=== PATIENT | male | born 1990 | race Caucasian/White ===

== ENCOUNTER 2020-02-10 00:34 | Observation (INO) | payer OTHER ==
[2020-02-10] VITALS (7 sets, daily range): BP systolic 122–145; BP diastolic 73–89; Ht 190.5 cm; Wt 143.3 kg
[~2020-02-10] VITALS: Ht 190.5 cm; Wt 143.3 kg
[2020-02-10] MEDS ORDERED: NORVASC10 MG PO (00:39)
[2020-02-10] MEDS ORDERED: COZAAR100 MG PO (00:39)
[2020-02-10] MEDS ORDERED: HCTZ25 MG PO (00:39)
[2020-02-10] MEDS ORDERED: ZETIA10 MG PO (00:39)
[2020-02-10] MEDS ORDERED: FENOFIBRATE160 MG PO (00:40)
[2020-02-10] MEDS ORDERED: [UNRECOGNIZED DRUG - OTHER] (00:40)
[2020-02-10] MEDS ORDERED: METOPROLOL TART25 MG PO (00:40)
[2020-02-10] MEDS ORDERED: LIPITOR20 MG PO (00:40)
[2020-02-10 01:16] LABS: BASOPHILS 0.1 % (0-2); EOSINOPHILS 1.3 % (0-7); HEMATOCRIT 44.3 % (42.0-54.0); HEMOGLOBIN 14.2 g/dL (13.5-17.5); IMMATURE GRANULOCYTES 0.2 % (0-5); LYMPHOCYTES 32.8 % (15-50); MCH 27.7 pg (26.0-34.0); MCHC 32.1 g/dL (31.0-37.0); MCV 86.5 fL (80.0-100.0); MEAN PLATELET VOLUME 9.1 fL (7.4-10.4); MONOCYTES 6.6 % (2-11); PLATELET COUNT 261 10x3/uL (130-400); RBC 5.12 10x6/uL (4.20-6.10); RDW 13.2 % (11.5-14.5); WBC 9.6 10x3/uL (4.8-10.8)
[2020-02-10 01:27] LABS: CALC OSMOLALITY 278 mosm/kg (275-300); CALCIUM 8.5 mg/dL (8.5-10.1); CARBON DIOXIDE 26.8 mmol/L (21.0-32.0); CHLORIDE - SERUM 103 mmol/L (98-107); GLUCOSE 97 mg/dL (74-106); INR 1.05 (0.85-1.17); POTASSIUM - SERUM 3.7 mmol/L (3.5-5.1); PROTIME 13.6 SECONDS (11.6-15.0); SODIUM 139 mmol/L (136-145); UREA NITROGEN 14 mg/dL (7-18); eGFR NON AFRICAN AMERICAN > 90 mL/min (90-120)
[2020-02-10 01:28] LABS: APTT 38.3 SECONDS (22.8-39.4)
[2020-02-10 01:43] LABS: ALBUMIN 3.7 g/dL (3.4-5.0); ALKALINE PHOSPHATASE 54 U/L (30-120); ALT (SGPT) 52 U/L (10-68); CKMB 0.3 U/L (0.0-3.6); CREATINE KINASE 109 UL (21-232); PROTEIN - SERUM 7.5 g/dL (6.4-8.2); TROPONIN-I < 0.017 ng/mL (0.000-0.060)
--- NOTE | 2020-02-10 02:51 | NUR ---
RECEIVED VIA WHEELCHAIR FROM ER, A&O X4, NEDS AND HISTORY COMPLETE, PLACED ON TELEMTRY, WILL KEEP NPO, BED IS LOW, SRX2, CALL LIGHT IN REACH, WILL CONTINUE PLAN OF CARE
--- NOTE | 2020-02-10 05:53 | NUR ---
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
[2020-02-10 06:19] LABS: CREATINE KINASE 104 UL (21-232)
[2020-02-10 06:22] LABS: TROPONIN-I < 0.017 ng/mL (0.000-0.060)
--- NOTE | 2020-02-10 19:15 | NUR ---
RECEIVED REPORT, WILL ASSUME CARE OF PT, ASKING FOR COFFEE, PROVIDED, DENIES ANY OTHER NEEDS AT THIS TIME, BED IS LOW, SRX2, CALL LIGHT IN REACH, WILL CONTINUE PLAN OF CARE
--- NOTE | 2020-02-10 21:09 | NUR ---
WENT TO GIVE PM MEDS, PT HAD ALREADY TOOK HIS OWN
[2020-02-11 01:12] VITALS: BP 115/67
--- NOTE | 2020-02-11 03:59 | NUR ---
I have reviewed this patient and I concur with the Shift Assessment completed by the Licensed Practical Nurse today this shift.
[2020-02-11 04:05] VITALS: BP 115/74
[2020-02-11 05:51] LABS: BASOPHILS 0.2 % (0-2); EOSINOPHILS 1.5 % (0-7); HEMATOCRIT 46.7 % (42.0-54.0); HEMOGLOBIN 15.2 g/dL (13.5-17.5); IMMATURE GRANULOCYTES 0.2 % (0-5); LYMPHOCYTES 33.9 % (15-50); MCH 27.9 pg (26.0-34.0); MCHC 32.5 g/dL (31.0-37.0); MCV 85.8 fL (80.0-100.0); MEAN PLATELET VOLUME 9.2 fL (7.4-10.4); MONOCYTES 9.4 % (2-11); NEUTROPHILS 54.8 % (40-80); RBC 5.44 10x6/uL (4.20-6.10); RDW 13.3 % (11.5-14.5); WBC 10.3 10x3/uL (4.8-10.8)
[2020-02-11 05:55] LABS: PLATELET COUNT 316 10x3/uL (130-400)
[2020-02-11 06:28] LABS: ALBUMIN 3.8 g/dL (3.4-5.0); ALKALINE PHOSPHATASE 65 U/L (30-120); ALT (SGPT) 49 U/L (10-68); BILIRUBIN - TOTAL 0.62 mg/dL (0.2-1.3); CALC OSMOLALITY 274 mosm/kg (275-300); CALCIUM 8.9 mg/dL (8.5-10.1); CHLORIDE - SERUM 100 mmol/L (98-107); CREATININE - SERUM 1.1 mg/dL (0.6-1.3); GLUCOSE 103 mg/dL (74-106); PROTEIN - SERUM 7.4 g/dL (6.4-8.2); SODIUM 137 mmol/L (136-145); UREA NITROGEN 14 mg/dL (7-18); eGFR NON AFRICAN AMERICAN 83 mL/min (90-120)
[2020-02-11 07:53] VITALS: BP 131/72
[2020-02-11] MEDS ORDERED: ASPIRIN81 MG PO (09:09)
--- NOTE | 2020-02-11 10:53 | NUR ---
IV AND TELEMETRY DCD. DC PLANS GIVEN. UNDERSTANDING VOICED. ESCORTED TO CAR BY W/C.
--- NOTE | 2020-02-13 07:30 | MORECARE ---
CASE MANAGEMENT DISCHARGE SUMMARY PATIENT: PAULA XAVIER UNIT: [id number] ADM DATE: 02/10/20 AGE: 29 : 88 SEX: M ROOM/BED: D.2119 AUTHOR: DONTA TILLMAN PHYSICIAN: REFERRING PHYSICIAN: SHERIF HORVATH MD DATE OF SERVICE: 02/13/20 Discharge Plan Patient Name: PAULA XAVIER [facility] : 1990 Planned Disposition: Anticipated Discharge Date: Discharge Date: 02/11/2020 Expected LOS: 0 Initial Reviewer: [email or web address] Initial Review Date: 02/10/2020 Generated: 02/13/20 8:30 am Patient Name: PAULA XAVIER Page [id number] at 0730 All edits/amendments must be made on the electronic document DICTATION DATE: 02/13/20729 STUDENT SERVICES DEAN: ROMEO 02/13/20729 RPT#: [id number] DC DATE:02/11/20 STATUS: DIS IN [facility] [address] [place] [address] END OF REPORT
== END 2020-02-11 10:53 | disposition home or self-care (01) ==
LOC: D.ER 00:34 → OBSVTIME 01:38 → D.M2 01:38
PROVIDERS: Emergency Medicine; Family Medicine; ADMIT Internal Medicine Nephrology; ATTEND Internal Medicine Nephrology
DX: R07.9 Chest pain, unspecified (principal); I10 Essential (primary) hypertension; E66.01 Morbid (severe) obesity due to excess calories; Z68.39 Body mass index [BMI] 39.0-39.9, adult; E78.5 Hyperlipidemia, unspecified; Z87.891 Personal history of nicotine dependence

== ENCOUNTER → 2020-12-17 11:46 | Outpatient (CLI) | payer OTHER ==
[2020-02-10 08:28] VITALS: BMI 39.8
[~2020-12-17 11:46] MED LIST: ASPIRIN81 MG PO; COZAAR100 MG PO; FENOFIBRATE160 MG PO; HCTZ25 MG PO; LIPITOR20 MG PO; METOPROLOL TART25 MG PO; NORVASC10 MG PO; ZETIA10 MG PO; [UNRECOGNIZED DRUG - OTHER]
== END | disposition home or self-care (01) ==
LOC: D.US 11:00 → D.NM 11:30 → D.US 11:46
PROVIDERS: ATTEND Internal Medicine Medical Oncology
DX: R16.1 Splenomegaly, not elsewhere classified (principal); R10.12 Left upper quadrant pain

== ENCOUNTER 2021-01-22 05:45 | Day surgery (SDC) | payer OTHER ==
[2021-01-21 12:49] LABS: BASOPHILS 0.2 % (0-2); EOSINOPHILS 1.3 % (0-7); HEMATOCRIT 46.6 % (42.0-54.0); HEMOGLOBIN 15.4 g/dL (13.5-17.5); IMMATURE GRANULOCYTES 0.2 % (0-5); LYMPHOCYTE ABS# 2.69 10x3/uL (1.32-3.57); LYMPHOCYTES 32.5 % (15-50); MCH 28.4 pg (26.0-34.0); MEAN PLATELET VOLUME 9.5 fL (7.4-10.4); MONOCYTES 6.7 % (2-11); NEUTROPHIL ABS# 4.88 10x3/uL (1.78-5.38); NEUTROPHILS 59.1 % (40-80); PLATELET COUNT 371 10x3/uL (130-400); RBC 5.42 10x6/uL (4.20-6.10); RDW 13.3 % (11.5-14.5); WBC 8.3 10x3/uL (4.8-10.8)
[2021-01-21 13:07] LABS: CALC OSMOLALITY 276 mosm/kg (275-300); CALCIUM 9.4 mg/dL (8.5-10.1); CARBON DIOXIDE 29.1 mmol/L (21.0-32.0); CHLORIDE - SERUM 103 mmol/L (98-107); GLUCOSE 86 mg/dL (74-106); POTASSIUM - SERUM 4.5 mmol/L (3.5-5.1); SODIUM 139 mmol/L (136-145); UREA NITROGEN 12 mg/dL (7-18); eGFR NON AFRICAN AMERICAN > 90 mL/min (90-120)
[~2021-01-22] VITALS: Ht 190.5 cm; Wt 145.9 kg
--- NOTE | ~2021-01-22 | OP ---
PATIENT NAME: PAULA XAVIER MEDICAL RECORD: [id number] :88 LOCATION:[facility] ADMISSION DATE: SURGEON: ABDULLAHI SOOD MD DATE OF OPERATION: 01/22/2021 PREOPERATIVE DIAGNOSES: 1. Splenomegaly. 2. Hypertension. 3. Hypercholesterolemia. POSTOPERATIVE DIAGNOSES: 1. Splenomegaly. 2. Hypertension. 3. Hypercholesterolemia. PROCEDURE: Laparoscopic splenectomy. SURGEON: Abdullahi Sood MD DESCRIPTION OF PROCEDURE: The patient's abdomen and left lateral flank were all prepped and draped in sterile fashion. A Veress needle was inserted in the left subcostal region and the abdomen was insufflated. A 5-mm Visiport trocar was inserted in the left lateral abdomen in the subcostal region. We could see the Veress needle and there was no sign of any injury to bowel or surrounding structures. We then placed an 11-mm trocar a little more laterally in the subcostal region and a 15-mm trocar out towards the flank, both under direct visualization. The patient's spleen was grossly enlarged. There were some adhesions present of some fatty tissue to the anterior abdominal wall and this was taken down with Harmonic scalpel. We released the fatty attachments to the inferior pole of the spleen and eventually was able to dissect out the inferior pole vessels. These arteries and veins were clipped proximally and distally and ligated in standard fashion. We continued our dissection to the splenic hilum. We took down the peritoneum overlying this and there were some areas where the stomach was very close to the spleen itself. Care was taken to take down the splenic attachments without injuring the stomach in any way. We eventually were able to dissect the peritoneum out laterally as well and isolated the vessels. Any of the vessels that we can isolate specifically we treated with clips and ligation. Eventually, we had the larger hilar structures, which were isolated and were treated with a 45 white load Endo-DARRICK stapler. We then took down the final superior attachments and at this point the spleen was completely freed up. This was placed into a large EndoCatch bag. We then eviscerated the bag through the 15-mm trocar site wound and morcellated the spleen using a ring forceps. The portions of the spleen were then sent off for permanent specimen. Once we had the bag removed from the abdomen, we reinserted the trocars and obtained insufflation. We irrigated out the abdomen. I saw no evidence of any bleeding throughout the abdominal cavity. We inspected the staple lines and the clips and there was no sign of any active bleeding. There was only a scant amount of thin bloody tissue that was present in the left upper quadrant in the subdiaphragmatic region and this was irrigated out with normal saline. At this point, we closed the 11 and 15 mm trocar site fascias with interrupted 0 Vicryl using a Cesar-Wendy suture passer device. The ports and insufflation were then removed. A total of 10 mL of 0.25% Marcaine with epinephrine was infused into the surrounding tissues and the skin incisions were closed with subcutaneous 5-0 Monocryl. OPERATIVE REPORT [id number] PAULA XAVIER COMPLICATIONS: None. CONDITION: Stable. ANESTHESIA: General endotracheal and local. BLOOD LOSS: Minimal. TRANSINT:[id number] Voice Confirmation ID: [id number] DOCUMENT ID: [id number] ABDULLAHI SOOD MD CC: OTTO NAM MD [id number] DICTATION DATE: 01/22/[address] REPORTER: 01/22/21 1533 [facility] [address] [place] [address]
[~2021-01-22 05:45] MED LIST changes: +PEPCID40 MG PO; +PRESERVISION PO; +STRATTERA25 MG PO; -[UNRECOGNIZED DRUG - OTHER]
[2021-01-22 06:56] VITALS: BP 137/94; BMI 40.2
--- NOTE | 2021-01-22 11:10 | NUR ---
PT WAS IN EXCRUCIATING PAIN. AFTER 2 OF DILAUDED HE RATES HIS PAIN 4 OUT OF 10. STATES IT IS SORE WHEN HE MOVES.
[2021-01-22 12:26] VITALS: BP 154/94; Ht 190.5 cm; Wt 145.9 kg
--- NOTE | 2021-01-22 12:42 | NUR ---
PATIENT ADMITTED TO ROOM 2222. ADMISSION COMPLETE. VITALS STABLE. CALL ROLLINS AND PERSONAL ITEMS IN REACH. REQUESTED AND GIVEN PRN PAIN MEDICATION. WILL CONTINUE TO MONITOR.
[2021-01-22 13:06] VITALS: BP 140/75
[2021-01-22 17:11] VITALS: BP 143/76
--- NOTE | 2021-01-22 19:33 | NUR ---
PT STATES HE HAS KIDNEY STONE, REQUEST FLOMAX. HOME MED REC REVIEWED FLOMAX IS NOT A HOME MED, DR MONSE BOWERS, FLOMAX 0.4MG QHS ORDERED
[2021-01-22 19:40] VITALS: BP 132/74
--- NOTE | 2021-01-22 21:22 | NUR ---
VOMITED, REQUEST TO WAIT ON PO PILLS WHEN [facility] STARTS TO WORK
--- NOTE | 2021-01-23 00:38 | NUR ---
I have reviewed this patient and I concur with the Shift Assessment completed by the Licensed Practical Nurse today this shift.
[2021-01-23 00:54] VITALS: BP 126/58
--- NOTE | 2021-01-23 04:24 | NUR ---
PT TRANSFER AFTER STAFF CUT. ASSESMENT ALREADY IN THE SYSTEM.
[2021-01-23 05:00] VITALS: BP 112/61
[2021-01-23 07:00] LABS: BASOPHILS 0.1 % (0-2); EOSINOPHILS 0 % (0-7); HEMATOCRIT 41.6 % (42.0-54.0); HEMOGLOBIN 13.4 g/dL (13.5-17.5); IMMATURE GRANULOCYTES 0.4 % (0-5); LYMPHOCYTE ABS# 1.77 10x3/uL (1.32-3.57); LYMPHOCYTES 12.3 % (15-50); MCH 28.2 pg (26.0-34.0); MCHC 32.2 g/dL (31.0-37.0); MCV 87.6 fL (80.0-100.0); MEAN PLATELET VOLUME 9.7 fL (7.4-10.4); MONOCYTES 8.9 % (2-11); NEUTROPHIL ABS# 11.23 10x3/uL (1.78-5.38); NEUTROPHILS 78.3 % (40-80); RBC 4.75 10x6/uL (4.20-6.10); RDW 13.7 % (11.5-14.5)
[2021-01-23 07:19] LABS: PLATELET COUNT 487 10x3/uL (130-400); WBC 14.4 10x3/uL (4.8-10.8)
[2021-01-23 08:33] VITALS: BP 126/80
--- NOTE | 2021-01-23 09:04 | NUR ---
ALERT AND ORIENTED. ASSESSMENT COMPLETE. DENIES NEEDS. BED LOW. CALL ROLLINS AND PERSONAL ITEMS IN REACH. WILL CONTINUE OT MONITOR.
[2021-01-23] MEDS ORDERED: HYDROCODON-ACE1 EAC7 PO (09:56)
[2021-01-23] MEDS ORDERED: COLACE100 MG PO (09:57)
--- NOTE | 2021-01-23 11:12 | NUR ---
DC EDUCATION PROVIDED BOTH WRITTEN AND VERBAL. VERBALIZED UNDERSTANDING. DENIES FURTHER QUESTIONS. IV REMOVED FROM RIGHT AND LEFT AC WITH TIPS INTACT. RX GIVEN FOR PRN PAIN MEDICATION AND STOOL SOFTENER. DENIES FURTHER NEEDS. PATIENT DC HOME WITH WITH ALL BELONGINGS.
== END 2021-01-23 11:14 | disposition home or self-care (01) ==
LOC: D.OPS 05:45 → D.MS 12:20 → D.OPS 01-23 11:14
PROVIDERS: ATTEND Surgery
DX: R16.1 Splenomegaly, not elsewhere classified (principal); I10 Essential (primary) hypertension; E78.00 Pure hypercholesterolemia, unspecified

== ENCOUNTER 2021-03-04 17:37 | Observation (INO) | payer OTHER ==
[~2021-03-04] VITALS: Ht 190.5 cm; Wt 135.3 kg
[~2021-03-04 17:37] MED LIST changes: +COLACE100 MG PO; +HYDROCODON-ACE1 EAC7 PO
--- NOTE | 2021-03-04 20:00 | NUR ---
REPORT RECEIVED. PT A&O, UP IN BED ON PHONE. NO S/S OF DISTRESS OBSERVED. RR EVEN & UNLABORED ON RA. BED LOCKED AND LOWERED, CL IN REACH. ASSESSMENT COMPLETE. WILL CONT POC.
[2021-03-04] MEDS ORDERED: CO Q-10200 MG PO (22:03)
[2021-03-04] MEDS ORDERED: ASCORBIC ACID500 MG PO (22:04)
[2021-03-04] MEDS ORDERED: VITAMIN E1000 UNI1 PO (22:04)
[2021-03-04 22:11] LABS: BASOPHILS 1.5 % (0-2); EOSINOPHILS 2.3 % (0-7); HEMOGLOBIN 15.7 g/dL (13.5-17.5); LYMPHOCYTES 48.4 % (15-50); MCH 28.3 pg (26.0-34.0); MCHC 34.3 g/dL (31.0-37.0); MCV 82.6 fL (80.0-100.0); MEAN PLATELET VOLUME 7.2 fL (7.4-10.4); MONOCYTES 7.5 % (2-11); NEUTROPHILS 40.3 % (40-80); RBC 5.56 10x6/uL (4.20-6.10); RDW 13.7 % (11.5-14.5); WBC 10.1 10x3/uL (4.8-10.8)
[2021-03-04 22:12] LABS: APTT 37.2 SECONDS (22.8-39.4); INR 1.06 (0.85-1.17); PROTIME 12.7 SECONDS (11.6-15.0)
[2021-03-04 22:13] LABS: D-DIMER-QUANTITATIVE 0.43 ug/mLFEU (0.20-0.54)
[2021-03-04 22:18] LABS: PLATELET COUNT 733 10x3/uL (130-400)
[2021-03-04 22:37] LABS: ALBUMIN 3.8 g/dL (3.4-5.0); ALKALINE PHOSPHATASE 66 U/L (30-120); ALT (SGPT) 55 U/L (10-68); BILIRUBIN - TOTAL 0.36 mg/dL (0.2-1.3); CALC OSMOLALITY 280 mosm/kg (275-300); CALCIUM 8.4 mg/dL (8.5-10.1); CARBON DIOXIDE 25.8 mmol/L (21.0-32.0); CHLORIDE - SERUM 102 mmol/L (98-107); CKMB 0.4 U/L (0.0-3.6); CREATINE KINASE 134 UL (21-232); GLUCOSE 137 mg/dL (74-106); MAGNESIUM - SERUM 2.1 mg/dL (1.8-2.4); POTASSIUM - SERUM 3.3 mmol/L (3.5-5.1); PRO BNP 3 pg/mL (0-125); PROTEIN - SERUM 7.8 g/dL (6.4-8.2); SODIUM 139 mmol/L (136-145); UREA NITROGEN 14 mg/dL (7-18); eGFR NON AFRICAN AMERICAN > 90 mL/min (90-120)
[2021-03-04 22:51] LABS: TROPONIN-I < 0.017 ng/mL (0.000-0.060)
[2021-03-04 23:20] VITALS: BP 141/82
--- NOTE | 2021-03-04 23:30 | NUR ---
PTS SERUM K 3.3. ADMINISTERED 40 MEQ PER ELECTROLYTE PROTOCOL.
[2021-03-05 00:51] LABS: BILIRUBIN NEGATIVE (NEGATIVE); KETONE NEGATIVE (NEGATIVE); NITRITE NEGATIVE (NEGATIVE); UROBILINOGEN NORMAL mg/dL (< 2)
[2021-03-05 01:20] VITALS: Ht 190.5 cm; Wt 135.3 kg
[2021-03-05 01:34] LABS: UDS - AMPHET NEGATIVE QUAL (NEGATIVE); UDS - BARB NEGATIVE QUAL (NEGATIVE); UDS - BENZO NEGATIVE QUAL (NEGATIVE); UDS - COCAINE NEGATIVE QUAL (NEGATIVE); UDS - OPIATE NEGATIVE QUAL (NEGATIVE); UDS - PCP NEGATIVE QUAL (NEGATIVE); UDS - THC NEGATIVE QUAL (NEGATIVE)
[2021-03-05 03:13] LABS: EOSINOPHILS 2.6 % (0-7); HEMATOCRIT 44.4 % (42.0-54.0); HEMOGLOBIN 14.9 g/dL (13.5-17.5); LYMPHOCYTES 47.1 % (15-50); MCH 27.9 pg (26.0-34.0); MCHC 33.5 g/dL (31.0-37.0); MCV 83.1 fL (80.0-100.0); MEAN PLATELET VOLUME 6.9 fL (7.4-10.4); MONOCYTES 9.4 % (2-11); NEUTROPHILS 39.9 % (40-80); PLATELET COUNT 706 10x3/uL (130-400); RBC 5.34 10x6/uL (4.20-6.10); WBC 10.6 10x3/uL (4.8-10.8)
[2021-03-05 03:36] VITALS: BP 117/59
[2021-03-05 03:45] LABS: ALBUMIN 3.7 g/dL (3.4-5.0); ALKALINE PHOSPHATASE 61 U/L (30-120); ALT (SGPT) 46 U/L (10-68); CALC OSMOLALITY 278 mosm/kg (275-300); CALCIUM 8.6 mg/dL (8.5-10.1); CARBON DIOXIDE 26.7 mmol/L (21.0-32.0); CHLORIDE - SERUM 102 mmol/L (98-107); CKMB 0.4 U/L (0.0-3.6); CREATINE KINASE 119 UL (21-232); GLUCOSE 119 mg/dL (74-106); POTASSIUM - SERUM 3.7 mmol/L (3.5-5.1); PROTEIN - SERUM 7.3 g/dL (6.4-8.2); SODIUM 139 mmol/L (136-145); UREA NITROGEN 13 mg/dL (7-18); eGFR NON AFRICAN AMERICAN > 90 mL/min (90-120)
[2021-03-05 03:48] LABS: TROPONIN-I < 0.017 ng/mL (0.000-0.060)
--- NOTE | 2021-03-05 03:51 | NUR ---
PTS SERUM K REDRAW 3.7.
[2021-03-05 07:54] VITALS: BP 149/87
[2021-03-05 08:54] LABS: CKMB 0.4 U/L (0.0-3.6); CREATINE KINASE 114 UL (21-232)
[2021-03-05 08:55] LABS: TROPONIN-I < 0.017 ng/mL (0.000-0.060)
--- NOTE | 2021-03-05 09:54 | NUR ---
DISCHARGE INSTRUCTIONS WITH PATIENT, SALINE LOCK OUT AND DRESSING APPLIED, TELEMETRY REMOVED AND WAITING ON .
--- NOTE | 2021-03-05 10:14 | NUR ---
AMBULATORY TO CAR TO MEET
--- NOTE | 2021-03-07 18:53 | MORECARE ---
CASE MANAGEMENT DISCHARGE SUMMARY PATIENT: PAULA XAVIER UNIT: [id number] ADM DATE: 03/04/21 AGE: 30 : 88 SEX: M ROOM/BED: D.2105 AUTHOR: LAYNE,DOC PHYSICIAN: REFERRING PHYSICIAN: JENARO CORREA DO DATE OF SERVICE: 03/07/21 Case Management Discharge Planning Summary DCP REVIEW SUMMARY ANTICIPATED D/C DATE: EXPECTED LOS : CASE STATUS: DCP Complete INITIAL REVIEW: 03/04/2021 INITIAL REVIEWER: Pippa Long FINAL DISCHARGE DISPOSITION: : FINAL REVIEWER: FINAL REVIEW DATE: DCP [employer] Questions & Answers QUESTION: ANSWER : PATIENT: PAULA XAVIER ENCOUNTER: [id number] MEDICAL RECORD#: [id number] ADMISSION DATE: 03/04/2021 DISCHARGE DATE: 03/05/2021 ATTENDING MD: JENARO PENN : AGE: 30 MARITAL STATUS: M DC PLAN ID: [id number] FACILITY: [facility] PRINTED ON: 03/07/21 18:53 CT All edits/amendments must be made on the electronic document DICTATION DATE: 03/07/211852 HOMICIDE SQUAD COMMANDING OFFICER: DM 03/07/211852 RPT#: [id number] DC DATE:03/05/21 STATUS: DIS IN [facility] [address] [place] [address] END OF REPORT
== END 2021-03-05 10:14 | disposition home or self-care (01) ==
LOC: D.CT 17:37 → OBSVTIME 19:00 → D.M2 19:00
PROVIDERS: Family Medicine; ADMIT Family Medicine; ATTEND Family Medicine
DX: R07.9 Chest pain, unspecified (principal); I10 Essential (primary) hypertension; K21.9 Gastro-esophageal reflux disease without esophagitis; R06.02 Shortness of breath; J45.909 Unspecified asthma, uncomplicated; Z87.891 Personal history of nicotine dependence; E78.5 Hyperlipidemia, unspecified

== ENCOUNTER → 2021-03-18 13:16 | Outpatient (CLI) | payer OTHER ==
[2021-03-05 01:20] VITALS: BMI 37.3
--- NOTE | ~2021-03-18 | ST ---
PATIENT:PAULA XAVIER MEDICAL RECORD: [id number] SEX: M LOCATION:[facility] ORDER #: ADMISSION DATE: 03/18/21 AGE OF PATIENT: 30 REFERRING PHYSICIAN: INTERPRETING PHYSICIAN: SAUNDRA HAWLEY MD DATE OF SERVICE: 03/18/2021 TREADMILL STRESS TEST Baseline ECG is normal. Exercised for 6 minutes on Tariq protocol. Maximum heart rate 142 beats per minute or less than 85% max predicted. No ECG changes of ischemia. No symptoms of ischemia. No blood pressure response to exercise. No arrhythmias noted. Poor exercise tolerance for age. TRANSINT:[id number] Voice Confirmation ID: [id number] DOCUMENT ID: [id number] SAUNDRA HAWLEY MD CC: [id number] DICTATION DATE: 03/19/21906 SENIOR MANAGING DIRECTOR: 03/20/[address] [facility] CLI 03/18/21 [id number] [place] [address]
[~2021-03-18 13:16] MED LIST changes: +ASCORBIC ACID500 MG PO; +CO Q-10200 MG PO; +VITAMIN E1000 UNI1 PO
== END | disposition home or self-care (01) ==
LOC: D.HCCARDIO 03-16 13:00
PROVIDERS: ATTEND Internal Medicine Interventional Cardiology
DX: R06.00 Dyspnea, unspecified (principal)

== ENCOUNTER 2021-04-11 20:34 | Emergency (ER) | payer OTHER ==
[~2021-04-11] VITALS: Ht 190.5 cm; Wt 143.3 kg
[2021-04-11 20:45] VITALS: Ht 190.5 cm; Wt 143.3 kg
[2021-04-11] MEDS ORDERED: SYMBICORT 16010.2 GM INH (20:51)
[2021-04-11 21:34] LABS: BASOPHILS 1.1 % (0-2); HEMATOCRIT 45.4 % (42.0-54.0); LYMPHOCYTES 32.9 % (15-50); MCH 27.7 pg (26.0-34.0); MCV 83.9 fL (80.0-100.0); MEAN PLATELET VOLUME 6.7 fL (7.4-10.4); MONOCYTES 6.4 % (2-11); NEUTROPHILS 58.6 % (40-80); PLATELET COUNT 764 10x3/uL (130-400); RBC 5.42 10x6/uL (4.20-6.10); RDW 14.7 % (11.5-14.5)
[2021-04-11 21:48] LABS: CALC OSMOLALITY 288 mosm/kg (275-300); CALCIUM 8.6 mg/dL (8.5-10.1); CARBON DIOXIDE 26.9 mmol/L (21.0-32.0); CHLORIDE - SERUM 105 mmol/L (98-107); CREATININE - SERUM 1.1 mg/dL (0.6-1.3); GLUCOSE 161 mg/dL (74-106); POTASSIUM - SERUM 3.5 mmol/L (3.5-5.1); SODIUM 143 mmol/L (136-145); UREA NITROGEN 15 mg/dL (7-18); eGFR NON AFRICAN AMERICAN 83 mL/min (90-120)
[2021-04-11 22:00] VITALS: BP 152/89
[2021-04-11 22:01] LABS: ALBUMIN 3.8 g/dL (3.4-5.0); ALKALINE PHOSPHATASE 59 U/L (30-120); ALT (SGPT) 59 U/L (10-68); BILIRUBIN - TOTAL 0.16 mg/dL (0.2-1.3); C-REACTIVE PROTEIN 0.2 mg/dL (0.0-0.9); PROTEIN - SERUM 7.4 g/dL (6.4-8.2); THYROID STIMULATING HORMONE 2.16 uIU/mL (0.36-3.74)
[2021-04-11 22:02] LABS: PRO BNP 5 pg/mL (0-125); TROPONIN-I < 0.017 ng/mL (0.000-0.060)
[2021-04-11] MEDS ORDERED: CLONIDINE HCL0.1 MG PO (22:50)
== END 2021-04-12 00:47 | disposition home or self-care (01) ==
LOC: D.ER 20:34
PROVIDERS: Family Medicine
DX: R07.9 Chest pain, unspecified (principal); R06.02 Shortness of breath; Z79.82 Long term (current) use of aspirin; I10 Essential (primary) hypertension; D47.3 Essential (hemorrhagic) thrombocythemia